=== PATIENT | male | born 1955 | race Caucasian/White ===

== ENCOUNTER 2019-09-24 17:06 | Emergency (ER) | payer OTHER ==
[~2019-09-24] VITALS: Ht 177.8 cm; Wt 90.7 kg
[~2019-09-24 17:06] MED LIST: LISI5
[2019-09-24] MEDS ORDERED: Roxicodone5 MG PO (18:36)
[2019-09-24] MEDS ORDERED: Cyclobenzaprine5 MG PO (18:36)
[2019-09-24] MEDS ORDERED: Oxycodone HCl5 M1 PO (18:38)
== END 2019-09-24 18:55 | disposition home or self-care (01) ==
LOC: ER 17:06
DX: S39.012A Strain of muscle, fascia and tendon of lower back, initial encounter (principal); Z79.899 Other long term (current) drug therapy; W22.8XXA Striking against or struck by other objects, initial encounter
CPT/HCPCS: 72100; 96374; 99283-25; A9270; J1885

== ENCOUNTER 2019-09-28 09:22 | Emergency (ER) | payer OTHER ==
[~2019-09-28] VITALS: Ht 175.3 cm; Wt 87.5 kg
[~2019-09-28 09:22] MED LIST changes: +Cyclobenzaprine5 MG PO; +Oxycodone HCl5 M1 PO; +Roxicodone5 MG PO
[2019-09-28] MEDS ORDERED: PRED20 PO (09:46)
[2019-09-29] MEDS ORDERED: Percocet 5-3251 EACH PO (09:17)
[2019-09-29] MEDS ORDERED: CYCL10 PO (09:17)
== END 2019-09-28 10:28 | disposition home or self-care (01) ==
LOC: ER 09:22
DX: M62.830 Muscle spasm of back (principal); I10 Essential (primary) hypertension; Z87.891 Personal history of nicotine dependence
CPT/HCPCS: 96372; 99283-25; J1170; J1885; J3360

== ENCOUNTER 2019-09-29 05:40 | Emergency (ER) | payer OTHER ==
[~2019-09-29] VITALS: Ht 175.3 cm; Wt 87.5 kg
[~2019-09-29 05:40] MED LIST changes: +PRED20 PO
[2019-09-29] MEDS ORDERED: Percocet 5-3251 EACH PO (09:17)
[2019-09-29] MEDS ORDERED: CYCL10 PO (09:17)
== END 2019-09-29 09:51 | disposition home or self-care (01) ==
LOC: ER 05:40
DX: M54.40 Lumbago with sciatica, unspecified side (principal); I10 Essential (primary) hypertension
CPT/HCPCS: 96374; 96375; 99284-25; J1170; J2405

== ENCOUNTER 2019-10-01 14:37 | Inpatient (IN) | payer OTHER ==
[~2019-10-01] VITALS: Ht 180.3 cm; Wt 92.2 kg
[~2019-10-01 14:37] MED LIST changes: +CYCL10 PO; +Percocet 5-3251 EACH PO
[2019-10-01 15:19] LABS: Hematocrit 43.5 % (37.0-53.0); Hemoglobin 14.3 g/dL (13.5-17.5); Mean Corpuscular HGB 29.7 pg (26.0-34.0); Mean Corpuscular HGB Conc 32.9 g/dL (31.5-36.5); Mean Corpuscular Volume 90 fL (80-100); Mean Platelet Volume 10.5 fL (9.1-12.4); Platelet Count 169 K/mm3 (150-400); RDW Coefficient Variation 13.9 % (11.7-14.2); RDW Standard Deviation 46.4 fL (35.1-46.3); Red Blood Cell Count 4.82 M/mm3 (4.30-5.90); White Blood Cell Count 18.36 K/mm3 (4.00-11.30)
[2019-10-01 15:26] LABS: Alanine Aminotransfer (ALT/SGP 91 U/L (12-78); Albumin, Blood 2.4 g/dL (3.4-5.0); Albumin/Globulin Ratio 0.4 (0.8-1.8); Alk Phos 161 U/L (50-136); Anion Gap 10 mmol/L (6-16); Aspartate Aminotrans (AST/SGOT 96 U/L (12-37); Bilirubin, Total 1.2 mg/dL (0.1-1.0); Blood Urea Nitrogen 37 mg/dL (8-24); Bun/Creatinine Ratio 38.7 (12.0-20.0); CO2, Blood 22 mmol/L (21-32); Calcium, Blood 9.1 mg/dL (8.5-10.1); Chloride, Blood 102 mmol/L (98-108); Creatinine, Blood 0.96 mg/dL (0.60-1.20); Globulin, Blood 5.9 g/dL (2.2-4.0); Glomerular Filtration Rate >60 (60-); Glucose, Blood 132 mg/dL (70-99); Potassium, Blood 4.3 mmol/L (3.5-5.5); Sodium, Blood 134 mmol/L (136-145); Total Protein, Blood 8.3 g/dL (6.4-8.2)
[2019-10-01 15:37] LABS: International Normalized Ratio 1.28; Prothrombin Time Results 13.3 Sec (9.7-11.5)
[2019-10-01 15:44] LABS: Source, Urine Catheter
[2019-10-01 15:47] LABS: BAND PERCENT MAN 15 % (0-8); BASOPHILS PERCENT MAN 0 % (0-2); EOSINOPHILS PERCENT MAN 0 % (0-6); LYMPHOCYTES ABSOLUTE MAN 0.36 K/mm3 (0.84-5.20); LYMPHOCYTES PERCENT MAN 2 % (21-46); METAMYELOCYTE ABSOLUTE MAN 0.36 K/mm3 (0.00-0.00); METAMYELOCYTE PERCENT MAN 2 % (0-0); MONOCYTES ABSOLUTE MAN 0.55 K/mm3 (0.16-1.47); MONOCYTES PERCENT MAN 3 % (4-13); MYELOCYTE ABSOLUTE MAN 0.18 K/mm3 (0.00-0.00); MYELOCYTE PERCENT MAN 1 % (0-0); NEUTROPHILS ABSOLUTE MAN 16.89 K/mm3 (1.96-9.15); SEG NEUTROPHILS PERCENT MAN 77 % (41-73); TOTAL CELLS COUNTED 100
[2019-10-01 15:51] LABS: Appearance, Urine Hazy (Clear); Bilirubin, Urine Neg (Neg); Blood, Urine 5+ (Neg); Color, Urine Yellow (P-Yellow); Glucose Qualitative, Urine Neg (Neg); Ketones, Urine Neg (Neg); Leukocyte Esterase, Urine 1+ (Neg); Nitrite, Urine Neg (Neg); Protein, Urine 3+ (Neg); Urobilinogen, Urine 2+ (Normal)
[2019-10-01 16:01] LABS: Amorphous Mod (0-Heavy); Bacteria Mod /hpf; Squamous Epithelial Cells Rare /hpf (Few)
[2019-10-01] MEDS ORDERED: TAMS.4ER PO (16:38)
[2019-10-01] MEDS ORDERED: Oxycodone-Apap1 EAC3 PO (16:39)
[2019-10-01] MEDS ORDERED: CYCL10 PO (16:39)
[2019-10-01 17:19] LABS: Influenza A Negative (NEGATIVE); Influenza B Negative (NEGATIVE)
[2019-10-01] MEDS ORDERED: Aspir 8181 MG PO (17:34)
[2019-10-01] MEDS ORDERED: AMLO10 PO (17:35)
[2019-10-01] MEDS ORDERED: Prinivil10 MG PO (17:35)
[2019-10-01 20:51] LABS: PCO2 Arterial 37.9 mmHg (35-45); PO2 Arterial 138 mmHg (80-100); pH Blood Arterial 7.43 (7.35-7.45)
--- NOTE | 2019-10-01 21:30 | NUR ---
OG PLACED. CLAMPED. PT TOLERATED WELL
--- NOTE | 2019-10-01 22:40 | NUR ---
ASSUMPTION OF CARE: PT ARRIVED TO UNIT FROM ED. PT IS INTUBATED AND DROWSY. ABLE TO NOD HEAD TO ANSWER QUESTIONS. ETT AT 8.0 AND 24 AT LIP. VENT SETTINGS AC 16/450/PEEP5/FI02 45%. SP02 >90%. HR TACHY IN THE 100S. SBP IN THE 100S. ON LEVOPHED AT 8 MCG. LUNG SOUNDS COURSE THROUGHOUT. BT X 1. HANNA IN PLACE DRAINING CLEAR YELLOW URINE.
--- NOTE | 2019-10-01 22:47 | NUR ---
PT BP CONTINUING TO DROP AFTER LP. LEVOPHED AT 30, PROPOFOL 20, NS AT 150MLS/HR. VASOPRESSIN ORDERED. IS AT BEDSIDE.
--- NOTE | 2019-10-02 | NUR ---
BP LOW DESPITE LEVO AND VASO. CALL PLACED TO MD. ORDERS FOR EPI GIVEN
[2019-10-02 00:03] LABS: Adenovirus Not Detected (NOT DETECT); Bordetella pertussis Not Detected (NOT DETECT); Chlamydophila pneumoniae Not Detected (NOT DETECT); Coronavirus 229E Not Detected (NOT DETECT); Coronavirus HKU1 Not Detected (NOT DETECT); Coronavirus NL63 Not Detected (NOT DETECT); Coronavirus OC43 Not Detected (NOT DETECT); Human Metapneumovirus Not Detected (NOT DETECT); Human Rhinovirus/Enterovirus Not Detected (NOT DETECT); Influenza A Not Detected (NOT DETECT); Influenza A/2009-H1 Not Detected (NOT DETECT); Influenza A/H1 Not Detected (NOT DETECT); Influenza A/H3 Not Detected (NOT DETECT); Influenza B Not Detected (NOT DETECT); Mycoplasma pneumoniae Not Detected (NOT DETECT); Parainfluenza Virus 1 Not Detected (NOT DETECT); Parainfluenza Virus 2 Not Detected (NOT DETECT); Parainfluenza Virus 3 Not Detected (NOT DETECT); Parainfluenza Virus 4 Not Detected (NOT DETECT); Respiratory Syncytial Virus Not Detected (NOT DETECT)
--- NOTE | 2019-10-02 00:10 | NUR ---
OG HOOKED UP TO LIS
[2019-10-02 04:12] LABS: Hematocrit 35.5 % (37.0-53.0); Hemoglobin 11.9 g/dL (13.5-17.5); Mean Corpuscular HGB 30.3 pg (26.0-34.0); Mean Corpuscular HGB Conc 33.5 g/dL (31.5-36.5); Mean Corpuscular Volume 90 fL (80-100); Mean Platelet Volume 10.4 fL (9.1-12.4); Platelet Count 113 K/mm3 (150-400); RDW Coefficient Variation 14.4 % (11.7-14.2); RDW Standard Deviation 47.8 fL (35.1-46.3); Red Blood Cell Count 3.93 M/mm3 (4.30-5.90); White Blood Cell Count 25.46 K/mm3 (4.00-11.30)
[2019-10-02 04:32] LABS: Albumin, Blood 1.8 g/dL (3.4-5.0); Albumin/Globulin Ratio 0.4 (0.8-1.8); Bilirubin, Total 0.8 mg/dL (0.1-1.0); Bun/Creatinine Ratio 39.7 (12.0-20.0); Calcium, Blood 7.8 mg/dL (8.5-10.1); Creatinine, Blood 1.36 mg/dL (0.60-1.20); Globulin, Blood 4.8 g/dL (2.2-4.0); Magnesium, Blood 2.2 mg/dL (1.6-2.4); Phosphorus, Blood 4.2 mg/dL (2.5-4.9); Potassium, Blood 4.3 mmol/L (3.5-5.5); Total Protein, Blood 6.6 g/dL (6.4-8.2)
[2019-10-02 04:41] LABS: BAND PERCENT MAN 8 % (0-8); BASOPHILS PERCENT MAN 0 % (0-2); EOSINOPHILS PERCENT MAN 0 % (0-6); LYMPHOCYTES ABSOLUTE MAN 0.76 K/mm3 (0.84-5.20); LYMPHOCYTES PERCENT MAN 3 % (21-46); MONOCYTES ABSOLUTE MAN 2.03 K/mm3 (0.16-1.47); MONOCYTES PERCENT MAN 8 % (4-13); MYELOCYTE ABSOLUTE MAN 0.25 K/mm3 (0.00-0.00); MYELOCYTE PERCENT MAN 1 % (0-0); SEG NEUTROPHILS PERCENT MAN 80 % (41-73); TOTAL CELLS COUNTED 100
[2019-10-02 04:44] LABS: Troponin I 3.74 ng/mL (0.000-0.040)
--- NOTE | 2019-10-02 06:20 | NUR ---
SHIFT SUMMARY: PT INTUBATED AND SEDATED. ABLE TO ROUSE AND PT IS ABLE TO ANSWER QUESTIONS BY SHAKING HEAD Y/N. BP STABLE. EPI ON STANDBY, LEVO AT 10MCG. LUNG SOUDNS CLEAR. AC VENT 16/450/PEEP 5/FIO2 30%. SP02 >90%. HANNA IN PLACE DRAINING DARK YELLOW URINE. RECTAL TEMP IN PLACE. PT HAS BEEN FEBRILE ABOUT 101.3 ALL SHIFT. BT X4, NO BM THIS SHIFT. MULT LP ATTEMPTS-BRUISING TO LOWER BACK. 18G LAC INF WITH NS TKO. SUBCLAVIAN CL INFUSING WITH PROP 30, LEVO 10, VASO 0.04, EPI ON STANDBY. PT TO HAVE ECHO IN AM. AT BEDSIDE THROUGHOUT SHIFT
--- NOTE | 2019-10-02 09:11 | NUR ---
ECHOCARDIOGRAM COMPLETED
--- NOTE | 2019-10-02 10:23 | NUR ---
PT ASSESSED THIS AM AT 0715. PT SEDATED ON PROPOFOL AT 30MCG FOR MECH VENT. LEVOPHED AT 10MCG, EPI ON STANDBY, VASOPRESSIN INFUSING. EPI STARTED AT 1MCG AND LEVOPHED TITRATED DOWN TO 6MCG. PT BP REMAINS STABLE ON THESE RATES. PT'S AT BEDSIDE. PT AROUSES TO VOICE WHILE ON SEDATION. PT ABLE TO WEAKLY NOD HEAD APPROPRIATELY TO QUESTIONS AND OPEN EYES WIDE TO COMMAND, PT NODS HEAD THAT THIS IS DIFFICULT TO DO. PT INTITIALLY DENIES C/O PAIN. DR LAN AT BEDSIDE AT 0800. PROPOFOL PLACED ON STANDBY FOR NEURO ASSESSMENT. PT WIDE AWAKE WITHIN 10MIN. PT ABLE TO FEEL SENSATION FROM HEAD TO TOE BUT UNABLE TO MOVE TRUNK AND EXTREMITIES. PT C/O SOME PAIN TO BACK, FENT IV GIVEN. NO GAG/SWALLOW/COUGH. PT DIRECTED TO SWALLOW AND COUGH AND NODS HEAD NO TO UNABLE TO. NO COUGH WHEN SUCTION TO ETT. ANESTHESIA WILL ATTEMPT LUMBAR PUNCTURE. IF ANESTHESIA IS UNSUCCESSFUL RADIOLOGIST WILL ATTEMPT W FLUROSCOPY.
--- NOTE | 2019-10-02 11:37 | NUR ---
EPI TURNED OFF AT 1125 PER EDYTA, WILL TITRATE LEVOPHED UP NEEDED. NS AT 100/HR ORDERED. POSSIBLE MICRO EMBOLI NOTED TO LEFT HAND; THIS SHOWN TO DR LAN. CALL OUT TO DR URRUTIA TO GET A STAT READING ON ECHO THIS AM.
[2019-10-02 12:58] LABS: U Amphetamine Screen Not Detected; U Methamphetamine Screen Not Detected
[2019-10-02 12:59] LABS: U Barbituate Screen Not Detected; U Benzodiazapine Screen DETECTED; U Buprenorphine Screen Not Detected; U Cannabinoids Screen DETECTED; U Cocaine Screen Not Detected; U Methadone Screen Not Detected; U Opiates Screen Not Detected; U Oxycodone Screen DETECTED; U Phencyclidine Screen Not Detected; U Propoxyphene Screen Not Detected
--- NOTE | 2019-10-02 13:08 | NUR ---
ANESTHESIOLOGIST AT BEDSIDE FOR LP. TIME OUT AT 1303. LP BEGAN AT 1308, PT PLACED ON FAR RIGHT SIDE, SPO2 85%, FIO2 INCREASED TO 100% FOR PROCEDURE. FENT 50MCG GIVEN FOR PROCEDURE WELL. CESSPOOL CLEANER ASSISTING WITH PT POSITIONING. MAP <60 W LEVOPHED AT 20MCG, EPI RE-STARTED AT 1 MCG; BP IMPROVED, WILL NOTIFY DR LAN
[2019-10-02 14:09] LABS: Automated CSF RBC Count 0.015 M/mm3 (0-0); Automated CSF WBC Count 6.682 K/mm3 (0-5); RBC Count, CSF 15000 /mm3 (0-0); WBC Count, CSF 6682 /mm3 (0-5)
[2019-10-02 14:21] LABS: Glucose, CSF 29 mg/dL (40-70)
[2019-10-02 14:30] LABS: RBC Count, CSF 46000 /mm3 (0-0); WBC Count, CSF 13104 /mm3 (0-5)
[2019-10-02 14:35] LABS: Automated CSF RBC Count 0.046 M/mm3 (0-0); Automated CSF WBC Count 13.104 K/mm3 (0-5)
--- NOTE | 2019-10-02 15:00 | NUR ---
DR MADDEN AT BEDSIDE TO SPEAK WITH PT'S FAMILY AND PT. PT AWAKE WITH EYES CLOSED/RESTING, CONT TO NOD HEAD APPROPRIATELY TO QUESTIONS, DENIES C/O PAIN. BP VERY LABILE. EPI TURNED OFF AT 1450 (FOR SECOND TIME TODAY). PICTURES OF POSSIBLE EMBOLI TO RIGHT HAND TAKEN. OTHER EXTEMITIES REMAIN CLEAR OF EMBOLI LIKE RASH. POSSIBLE CHACHA TODAY. REPEAT EKG ORDERED.
[2019-10-02 15:38] LABS: Monocytes, CSF 2 % (15-45); Neutrophils, CSF 98 % (0-6)
[2019-10-02 15:40] LABS: Lymphocytes, CSF 2 % (40-80); Monocytes, CSF 1 % (15-45); Neutrophils, CSF 97 % (0-6)
[2019-10-02 15:42] LABS: Appearance, CSF Cloudy (Clear)
[2019-10-02 15:43] LABS: Appearance, CSF Cloudy (Clear)
[2019-10-02 16:49] LABS: Cryptococcus Neoformans/Gattii Not Detected (NOT DETECT); Enterovirus Not Detected (NOT DETECT); Escherichia Coli K1 Not Detected (NOT DETECT); Haemophilus Influenza Not Detected (NOT DETECT); Herpes Simplex Virus 1 Not Detected (NOT DETECT); Herpes Simplex Virus 2 Not Detected (NOT DETECT); Human Herpesvirus 6 Not Detected (NOT DETECT); Human Parechovirus Not Detected (NOT DETECT); Listeria Monocytogenes Not Detected (NOT DETECT); Neisseria Meningitidis Not Detected (NOT DETECT); Streptococcus Agalactiae Not Detected (NOT DETECT); Streptococcus Pneumoniae Not Detected (NOT DETECT); Varicella Zoster Virus Not Detected (NOT DETECT)
--- NOTE | 2019-10-02 19:49 | NUR ---
CHACHA AT [address] MADDEN. PROPOFOL INCREASED TO 50MCG FOR PROCEDURE, FENT 50MCG IVP GIVEN WELL. LARGE VEGITATION NOTED TO AORTIC VALVE. DR URRUTIA SPOKE W DR LAN AND FAMILY AFTER PROCEDURE. IT WAS DECIDED THEN THAT PT TO BE TRANSFERED TO [facility] FOR HIGHER LEVEL OF CARE. NO CHANGE IN NEURO AT END OF SHIFT; PT ABLE TO NOD HEAD APPROPRIATELY TO QUESTIONS; SLIGHTLY MORE LETHARGIC AT END OF SHIFT. REPORT GIVEN TO DARRELL VYAS AT [facility] AND [facility]. AT END OF SHIFT, PRIOR TO TRANSFER, PT ON PROPOFOL 30MCG, AND LEVOPHED 10MCG. EPI AND VASOPRESSIN OFF. NO CHANGE TO PURPULA TO LEFT HAND. BELONGINGS SENT WITH FAMILY.
== END 2019-10-02 19:25 | disposition short-term general hospital (02) | DRG 871 ==
LOC: ER 14:37 → ICUW 19:34
PROVIDERS: Emergency Medicine; Internal Medicine Pulmonary Disease; ADMIT Internal Medicine
PROC: 3E033XZ Introduction of Vasopressor into Peripheral Vein, Percutaneous Approach (ICD-10-PCS; principal; 2019-10-01)
PROC: 02HV33Z Insertion of Infusion Device into Superior Vena Cava, Percutaneous Approach (ICD-10-PCS; 2019-10-01)
PROC: 0BH18EZ Insertion of Endotracheal Airway into Trachea, Via Natural or Artificial Opening Endoscopic (ICD-10-PCS; 2019-10-01)
PROC: 5A1945Z Respiratory Ventilation, 24-96 Consecutive Hours (ICD-10-PCS; 2019-10-01)
PROC: B24BZZ4 Ultrasonography of Heart with Aorta, Transesophageal (ICD-10-PCS; 2019-10-02)
DX: A41.01 Sepsis due to Methicillin susceptible Staphylococcus aureus (principal); I33.9 Acute and subacute endocarditis, unspecified; R65.21 Severe sepsis with septic shock; G00.9 Bacterial meningitis, unspecified; J18.9 Pneumonia, unspecified organism; J96.01 Acute respiratory failure with hypoxia; E87.2 Acidosis; N39.0 Urinary tract infection, site not specified; Z79.82 Long term (current) use of aspirin; Z87.891 Personal history of nicotine dependence; I10 Essential (primary) hypertension; E87.5 Hyperkalemia; L04.9 Acute lymphadenitis, unspecified; E66.3 Overweight; Z68.25 Body mass index [BMI] 25.0-25.9, adult
CPT/HCPCS: 0099U; 31500; 31720; 36415; 36600; 51702; 62270; 70450; 71045; 72126; 72129; 72132; 74176; 80053; 81001; 82042; 82784; 82803; 82945; 83605; 83735; 83880; 84100; 84157; 84484; 85025; 85610; 85730; 87040; 87070; 87077; 87086; 87147; 87186; 87205; 87483; 87804; 89051; 93005; 93010; 93306; 93312; 93325; 94002; 94003; 96361-59; 96365-59; 99291-25; C9113; J0171; J0696; J2250; J2704; J3010; J3370; J7030; J7050; J7060; J7120; Q9967